=== PATIENT | male | born 1970 | race Caucasian/White ===

== ENCOUNTER 2017-02-21 09:11 | Emergency (ER) | payer BC ==
[2017-02-21 09:28] VITALS: BP 133/87; PULSE 70; RESP 16; TEMP 98.6
--- NOTE | 2017-02-21 09:33 | EDPHY ---
H & P Time Seen by Provider: 02/21/17 09:23 HPI/ROS: CHIEF COMPLAINT: Laryngitis and cough HISTORY OF PRESENT ILLNESS: 47-year-old male states 3 days ago he developed laryngitis with a hoarse voice, minimal sore throat, and a cough productive of blood-tinged sputum. Denies any chest pain. Denies shortness of breath. Denies wheezing. Denies fever. Denies upper respiratory infection symptoms such as congestion, runny nose, or sore throat. Intermittent hacking cough. No fever. Patient's past history significant for hypertension leading to renal transplant. Patient is on CellCept. He has baseline significant anemia. Patient denies fevers or chills. Denies chest pain or shortness of breath. No nausea or vomiting. No peripheral edema. No lightheadedness. No headache. REVIEW OF SYSTEMS: Aside from elements discussed in the HPI, a comprehensive 10-point review of systems was reviewed and is negative. PAST MEDICAL HISTORY: Renal transplant, hypertension, anemia SOCIAL HISTORY: Nonsmoker. VITAL SIGNS: see nurse's notes. GENERAL: Well-developed, well-nourished, appears older than stated age, occasional dry cough. Hoarse voice. HEENT: Atraumatic Eyes: PERRL, EOMI, no conjunctival injection. Ears: TM clear bilaterally. Nose: No discharge. Mouth: Pale moist mucous membranes. Pharynx: no erythema, no exudates, no swelling, no abscess. Uvula is midline. NECK: Supple, no adenopathy, no meningismus, no tenderness. Negative Kernig's and Brudzinski's. LUNGS: Clear to auscultation bilaterally, no wheezes, rhonchi or rales. CARDIAC: Regular rate and rhythm, no rubs, systolic ejection murmur, no gallop. ABDOMEN: Soft, nontender, nondistended, bowel sounds normal. BACK: No CVA tenderness. EXTREMITIES: Normal, no edema, FROM. NEURO: Alert and oriented, grossly nonfocal. SKIN: pale, warm and dry, no rash. PSYCHIATRIC: Normal mentation, no agitation. Smoking Status: Never smoked Constitutional: Initial Vital Signs Temperature (C) 37.0 C 02/21/17 09:25 Heart Rate 70 02/21/17 09:25 Respiratory Rate 16 02/21/17 09:25 Blood Pressure 133/87 H 02/21/17 09:25 O2 Sat (%) 99 02/21/17 09:25 O2 Delivery Mode Room Air Allergies/Adverse Reactions: No Known Allergies Allergy (Verified 02/21/17 09:23) Home Medications: Medication Instructions Recorded Atorvastatin Calcium [Lipitor 40 40 mg PO DAILY 10/25/15 mg (*)] Calcium/Magnesium/Vit D3 [Calcium 2 tab PO DAILY 10/25/15 500 mg Tablet] Furosemide [Lasix 40 MG (*)] 40 mg PO DAILY 10/25/15 Metoprolol Succinate Xr [Toprol Xl 100 mg PO DAILY 10/25/15 100 mg (*)] Minoxidil [Minoxidil 10 mg (*)] 50 mg PO BID 10/25/15 Multivitamins [Multivitamin (*)] 1 each PO DAILY 10/25/15 Mycophenolate Mofetil [Cellcept] 1,000 mg PO BID 10/25/15 [place]-3 Fatty Acids [Fish Oil 1000 1,000 mg PO BID 10/25/15 mg (*)] cycloSPORINE, MODIFIED [Neoral 100 100 mg PO BID 10/25/15 MG (*)] cycloSPORINE, MODIFIED [Neoral 25 50 mg PO BID 10/25/15 MG (*)] predniSONE 5 mg PO DAILY 10/25/15 Albuterol Hfa Anes Only [Proair 2 puffs IH Q4 PRN #1 mdi 05/25/16 Hfa Icu (*)] Allipernol 05/25/16 Azithromycin [Zithromax] 250 mg PO DAILY #6 tab 05/25/16 Cellcept 05/25/16 Clonidine 05/25/16 Guaifenesin/Codeine Phosphate 5 - 10 ml PO Q6 PRN #120 ml 05/25/16 [Guaifenesin-Codeine Liquid] Labetalol HCl 05/25/16 Minoxidil 05/25/16 AZITHROMYCIN [Z-PACK] 250 - 500 mg PO DAILY #6 tab 02/21/17 Medical Decision Making ED Course/Re-evaluation: Given patient's immunosuppression secondary to CellCept, as well as his cough productive of slightly blood-tinged sputum, will place the patient on azithromycin. He reports he was on azithromycin previously for similar symptoms with good results. He does not have a fever. He looks well. He has been eating and drinking well. He sees Dr. Weber on a regular basis and will follow up with him. He he has no concerns regarding fevers, urinary difficulties, chest pain, or shortness of breath. I doubt sepsis, pulmonary embolism, cardiac event, overwhelming infection. Differential Diagnosis: Differential diagnosis for the patient's cough was considered including but not limited to viral versus bacterial bronchitis, asthma, COPD, pulmonary emboli, upper respiratory infection, lower respiratory infection, and bronchospasm. Departure - Departure Disposition: Home, Routine, Self-Care Clinical Impression: Acute upper respiratory infection, Bronchitis Condition: Good Instructions: Acute Bronchitis (ED), Hemoptysis (ED) Additional Instructions: You been given a prescription of azithromycin. Please begin taking this as directed. Over the counter cold medications often contain both antihistamines and decongestants. If you have a runny nose, take an antihistamine. If you are congested, take a decongestant. If you have a sore throat, use Tylenol, or ibuprofen. Throat lozenges, throat sprays, or salt water gargles may also be helpful. Seek care urgently or follow up at the emergency department if he develop a fever, worsening symptoms despite the above treatment, shortness of breath, chest pain, vomiting, or other concerns. Referrals: Bill Weber MD [Primary Care Provider] - As per Instructions Prescriptions: AZITHROMYCIN [Z-PACK] 250 - 500 mg PO DAILY #6 tab
[2017-02-21 09:40] VITALS: O2SAT 98
== END 2017-02-21 09:40 | disposition home or self-care (01) ==
LOC: CED 09:11
DX: J06.9 Acute upper respiratory infection, unspecified (principal); J20.9 Acute bronchitis, unspecified; I10 Essential (primary) hypertension

== ENCOUNTER → 2018-09-30 | Outpatient (CLI) | payer OTHER | LOC: BMCIMAGING 16:48 | PROVIDERS: ATTEND Internal Medicine | DX: R07.81 Pleurodynia (principal) ==